=== PATIENT | male | born 1950 | race Caucasian/White ===

== ENCOUNTER 2024-09-10 13:01 | Outpatient (CLI) | payer OTHER, SELFPAY | END 2024-09-10 13:02 | disposition home or self-care (01) | LOC: NFLDREF 09-14 00:48 | PROVIDERS: PCP Nurse Practitioner Family; Referring Provider Family Medicine; Visit Provider Nurse Practitioner Family | DX: Z00.00 Encounter for general adult medical examination without abnormal findings (principal); I10 Essential (primary) hypertension; R73.03 Prediabetes; R35.0 Frequency of micturition; Z12.5 Encounter for screening for malignant neoplasm of prostate | CPT/HCPCS: 80053; 80061; G0103 ==